=== PATIENT | female | born 1930 | race Caucasian/White ===

== ENCOUNTER 2018-03-04 11:58 | Emergency (ER) | payer MEDICARE, BC ==
[2018-03-04] MEDS ORDERED: MECLIZINE HYDROCHLORIDE 12.5 MG TAB PO ONE (12:59)
[2018-03-04] MEDS ORDERED: MECLIZINE HYDROCHLORIDE 12.5 MG TAB ONE (13:09)
[2018-03-04 13:17] LABS: BASOPHILS % (AUTO) 1 % (0-3); EOSINOPHILS % (AUTO) 1 % (0-9); HEMATOCRIT 37 % (35-47); HEMOGLOBIN 11.6 gm/dl (12.0-15.5); LYMPHOCYTES % (AUTO) 13.2 % (10-50); MEAN CORPUSCULAR HEMOGLOBIN 24.9 pg (27.0-32.0); MEAN CORPUSCULAR HGB CONC 31.3 gm/dl (32.0-36.0); MONOCYTES % (AUTO) 8.1 % (0-12); NEUTROPHILS % (AUTO) 76.5 % (37-80)
[2018-03-04 13:26] LABS: INR 0.91 (0.86-1.12)
[2018-03-04 13:28] VITALS: TEMP 97.8
[2018-03-04 13:36] LABS: ALBUMIN 3.6 gm/dl (3.4-5.0); ALKALINE PHOSPHATASE 143 IU/L (46-116); ALT 23 IU/L (14-63); AST 23 IU/L (15-37); BILIRUBIN,TOTAL 0.7 mg/dl (0.2-1.0); BLOOD UREA NITROGEN 16 mg/dl (7-18); CALCIUM 8.4 mg/dl (8.5-10.1); CHLORIDE 101 mMol/L (98-107); CREATININE 1.28 mg/dl (0.60-1.00); GLUCOSE 128 mg/dl (74-106); MEAN CORPUSCULAR VOLUME 79 fL (81-99); SODIUM 135 mMol/L (136-145); TOTAL PROTEIN 6.6 gm/dl (6.4-8.2); TROP I < 0.017 ng/ml (0.000-0.056)
[2018-03-04 13:37] LABS: ANISOCYTOSIS SLIGHT AMT; HYPOCHROMASIA PRESENT; OVALOCYTES PRESENT; POIKILOCYTOSIS SLIGHT AMT
[2018-03-04 16:00] VITALS: O2SAT 98
[2018-03-04 16:03] VITALS: BP 139/61; PULSE 74; RESP 18
== END 2018-03-04 15:25 | disposition home or self-care (01) | DRG 149 ==
LOC: ED 11:58
DX: R42 Dizziness and giddiness (principal); Z98.890 Other specified postprocedural states
CPT/HCPCS: 36415; 70450; 71045; 80053; 84484; 85025; 85610; 93005; 99283; 99285; A9270-GY